=== PATIENT | female | born 1985 | race Caucasian/White ===

== ENCOUNTER 2016-09-25 17:19 | Emergency (ER) | payer SELFPAY ==
[~2016-09-25] VITALS: Ht 167.6 cm; Wt 89.3 kg
[~2016-09-25 17:19] MED LIST: XANAX2 MG PO
[2016-09-25] MEDS ORDERED: ALPRAZOLAM2 MG PO (19:20)
[2016-09-25 19:46] VITALS: BP 123/93
== END 2016-09-25 19:47 | disposition home or self-care (01) ==
LOC: EME 17:19
DX: F41.9 Anxiety disorder, unspecified (principal); F40.243 Fear of flying
CPT/HCPCS: 99281; 99283